=== PATIENT | male | born 1980 | race Caucasian/White ===

== ENCOUNTER 2017-10-17 13:47 | Emergency (ER) | payer MEDICAID ==
[~2017-10-17] VITALS: Ht 165.1 cm; Wt 63.5 kg
[2017-10-17] MEDS ORDERED: MIDAZOLAM HCL 5 MG/ML-1ML VIAL ONE (14:38)
[2017-10-17] MEDS ORDERED: LABETALOL HCL 5 MG/ML ML 20ML VIAL IV ONE ×2 (14:39→14:45)
[2017-10-17] MEDS ORDERED: DEXAMETHASONE SOD PHOS 10MG/1ML VIAL INJ ONE (14:39)
[2017-10-17] MEDS ORDERED: MIDAZOLAM HCL 5 MG/ML-1ML VIAL IV ONE (14:45)
[2017-10-17] MEDS ORDERED: DEXAMETHASONE SOD PHOS 10MG/1ML VIAL INJ IV ONE (14:45)
[2017-10-17] MEDS ORDERED: PHENYTOIN IV DILANTIN 1,000 MG in SODIUM CHL 0.9% 250 ML IV ONE (15:00)
[2017-10-17] MEDS ORDERED: NICARDIPINE 25MG/250ML BAG KIT 250 ML IV SCH (15:00)
[2017-10-17 15:18] VITALS: BP 95/56
== END 2017-10-17 17:01 | disposition short-term general hospital (02) ==
LOC: EDBD 13:47 → ER 13:47
DX: I61.9 Nontraumatic intracerebral hemorrhage, unspecified (principal); E78.5 Hyperlipidemia, unspecified; I10 Essential (primary) hypertension; Z86.73 Personal history of transient ischemic attack (TIA), and cerebral infarction without residual deficits
CPT/HCPCS: 36600; 70450; 71045; 82805; 82962; 87040; 87070; 87205; 93005; 96374; 96375; 99285; J1100; J1165; J2250; J7030; J7050; 94002; 96365